=== PATIENT | male | born 1965 | race Caucasian/White ===

== ENCOUNTER 2017-10-21 13:42 | Emergency (ER) | payer SELFPAY ==
[~2017-10-21] VITALS: Ht 170.2 cm; Wt 75.0 kg
[2017-10-21 13:46] VITALS: BP 151/84; PULSE 104; TEMP 97.6
[2017-10-21] MEDS ORDERED: NORCO 325 MG-51 TAB PO (14:54)
[2017-10-21] MEDS ORDERED: CRUTCHES MC (14:54)
== END 2017-10-21 15:19 | disposition home or self-care (01) ==
LOC: COL.ER 13:42
DX: S86.012A Strain of left Achilles tendon, initial encounter (principal); W22.8XXA Striking against or struck by other objects, initial encounter